=== PATIENT | female | born 1970 | race Caucasian/White ===

== ENCOUNTER → 2018-06-25 17:40 | Outpatient (CLI) | payer BC, SELFPAY ==
[2018-06-25 15:12] VITALS: BMI 24.0
[2018-06-29 10:15] LABS: HPV APTIMA, High Risk Negative (Negative)
== END ==
PROVIDERS: Family Provider Family Medicine; PCP Family Medicine; Referring Provider Nurse Practitioner Women's Health; Visit Provider Nurse Practitioner Women's Health
DX: Z12.4 Encounter for screening for malignant neoplasm of cervix (principal)
CPT/HCPCS: 87624; 88175; G0145

== ENCOUNTER → 2018-07-02 08:50 | Outpatient (CLI) | payer BC, SELFPAY ==
[2018-06-25 15:12] VITALS: BMI 24.0
--- NOTE | 2018-07-02 08:53 | US_ITS ---
STUDY: ULTRASOUND BREAST - RIGHT REASON FOR EXAM: Female, 47 years old. Palpable lump in the right breast. TECHNIQUE: Axial and longitudinal images of the RIGHT breast were performed with a high resolution ultrasound transducer. COMPARISON: Comparison is made with prior mammogram done earlier in the day and prior ultrasound of the right breast dated February 04, 2015. FINDINGS: RIGHT Breast: The palpable abnormality corresponds to a 2.1 cm x 2.5 cm x 1.5 cm hypoechoic irregular nodule with increased vascularity. A biopsy is recommended for further evaluation. This is located at the 10:00 position of the breast at 6 cm from the nipple. US/Breast Limited Unilateral IMPRESSION: The palpable abnormality corresponds to a 2.1 cm x 2.5 cm 1.5 cm hypoechoic irregular nodule. A biopsy is recommended. ASSESSMENT CATEGORY: BIRADS Category 4: Suspicious - Biopsy Should Be Considered. A letter regarding these results will be sent to the patient by the facility within 30 days. Electronically Signed: Oliverio Bill, at 13:56 EST , Service support ,
--- NOTE | 2018-07-02 08:53 | BI_ITS ---
MAMMOGRAPHY - BILATERAL DIAGNOSTIC REASON FOR EXAM: Female, 47 years old. 3 week history of a palpable lump in the upper outer quadrant of the right breast. PERTINENT HISTORY: Non-contributory. TECHNIQUE: Digital bilateral breast daxa (3D mammographic acquisition) in the CC and MLO projections. 2-D mediolateral oblique (MLO) and craniocaudad (CC) views of both breasts were obtained. CAD: Full Field Digital Mammography with Computer Added Detection was performed. COMPARISON: Comparison is made with prior examination dated May 10, 2017 and October 21, 2015. FINDINGS: Breast Composition: The breasts are extremely dense, which lowers the sensitivity of mammography. Questionable nodular density in the upper-outer quadrant of the right breast. A tissue clip marker is once again seen in the upper outer aspect of the right breast. No other significant abnormalities are identified. BI/DIAG MAMM W/CAD, BILAT IMPRESSION: Questionable asymmetrical nodular density in the upper outer quadrant of the right breast. Correlation with ultrasound is recommended. ASSESSMENT CATEGORY: BIRADS Category 0: Incomplete. Need additional imaging evaluation. A letter regarding these results will be sent to the patient by the facility within 30 days. Approximately 10% of breast cancers are not detected by mammography. A normal mammogram should not delay biopsy of a clinically suspicious abnormality. Electronically Signed: Oliverio Bill, at 9:54 EST , Service support ,
== END ==
PROVIDERS: Family Provider Family Medicine; PCP Family Medicine; Referring Provider Nurse Practitioner Women's Health; Visit Provider Nurse Practitioner Women's Health
DX: N63.10 Unspecified lump in the right breast, unspecified quadrant (principal)
CPT/HCPCS: 76642; 77062; 77063; 77066; G0279

== ENCOUNTER 2018-07-27 10:22 | Day surgery (SDC) | payer BC, SELFPAY ==
[2018-06-25 15:12] VITALS: BMI 24.0
--- NOTE | 2018-07-20 15:32 | HP.PCM_ITS ---
History and Physical Date of Admission: 07/27/18 HISTORY AND PHYSICAL Rosa M Ricketts 1970 REFERRING PHYSICIAN: Adele Santiago (Robert), C* CHIEF COMPLAINT: Consult HPI: The patient is a 47 year old female presents with palpable right breast mass. Noted for the past few weeks. Believes that it is slowly enlarging. Denies nipple discharge. Mammograms - 07/02/18 - questionable nodular density in the upper outer quadrant of right breast. A tissue clip marker is once again seen in the upper outer aspect of the right breast. US right breast - 07/02/18 - 2.1 cm x 2.5 cm x 1.5 cm hypoechoic irregular nodule with increased vascularity. A biopsy is recommended for further evaluation. This is located at the 10:00 position of the breast at 6 cm from the nipple Had previous US guided right breast biopsy 02/25/15 - Pathology revealed - Fibroadenoma. Focal adenosis with microcalcifications. Negative for atypia or malignancy in the submitted specimen No palpable lesions noted at that time, but was noted to have bilaterally dense breast tissue on physical examination. Normal mammograms in 2018. Maternal grandmother had breast cancer, no ovarian cancer known in family. PAST MEDICAL HISTORY ? Anxiety 04/07/2017 ? Stress and adjustment reaction PAST SURGICAL HISTORY ? BREAST BIOPSY INCISIONAL RIGHT ? ORAL SURGERY PROCEDURE wisdom teeth removed, top only. ? REMOVAL OF TONSILS,<12 Y/O Tonsillectomy PAST INJURIES Denies head injuries, denies history of fractures Current Outpatient Medications: escitalopram oxalate (LEXAPRO) 20 mg tablet Take 1 tablet by mouth once daily. Etonogestrel-Ethinyl Estradiol (NUVARING) 0.12-0.015 mg/24 hr vaginal ring Insert vaginally as directed ALLERGIES: Penicillins PERSONAL HISTORY: Social History Socioeconomic History Marital status: Spouse name: Not on file Number of children: 0 Years of education: 15. 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 Cancer Maternal Grandfather LUNG CANCER ? Diabetes Paternal Grandfather ? Hypertension Father ? Coronary Artery Disease Father stents REVIEW OF SYSTEMS: General - denies fevers Cardiovascular - denies chest pain Pulmonary - denies shortness of breath, denies coughing up blood Gastrointestinal - denies abdominal pain, denies hematemesis Neurological - denies seizures Genitourinary - denies burning with urination Hematological - denies spontaneous/prolonged bleeding Skin - denies nonhealing skin wounds Musculoskeletal - denies chronic joint/back pain Endocrine - denies diabetes Psychological ? denies major mood changes, stressors in life - with ALS Obstetrical - meanrache onset at ager 18, G0, BCP use starting at age 19 for about 10-15 years, on nuvaring for 3 years, LMP late Jun. PHYSICAL EXAMINATION: General: The patient is 47 year old female, well nourished, well hydrated in no acute distress. The patient is oriented to time, place, and person. VITALS: Blood pressure 138/82, pulse 84, temperature 37.1 ?C (98.8 ?F), temperature source Temporal Artery, height 172.7 cm (5' 8), weight 71.6 kg (157 lb 12.8 oz), SpO2 100 %. Body mass index is 23.99 kg/m?. Head ? Normocephalic. EOM intact with sclera clear and no icterus noted. Mouth with mucus membranes moist. Neck - supple with no jugular venous distention noted. Trachea is midline. No carotid bruits noted. No thyroid enlargement or thyroid nodules detected. No masses noted. Chest/breast ? no asymmetry of breasts noted, no suspicious skin lesions noted, no nipple discharge and both nipples everted, nodular and very dense breast tissue palpated bilaterally, patient points to area at 10:00 of right breast with palpable mass - 2 cm Lungs ? clear to auscultation. Normal breath sounds. No rales/rhonchi/wheezing noted. No labored breathing noted, such as retractions. No cough heard. Heart ? normal S1 and S2 auscultated. No rubs/clicks/murmurs noted. Regular rate. Abdomen ? soft and benign. Normal bowel sounds. No abdominal bruits noted. No distention or tympany noted. No masses noted. Extremities ? no calf tenderness noted. No pitting edema noted. Skin ? normal skin integrity. Lymph ? no cervical adenopathy detected, no supraclavicular adenopathy detected, no axillary adenopathy detected Neurological ? gait normal, no focal deficits noted. Psych ? calm and appropriate RADIOLOGIC STUDIES: As Noted IMPRESSION: right breast mass, abnormal right breast ultrasound and mammograms PLAN: I have discussed the above with the patient. I suspect that this lesion will likely be consistent with a fibroadenoma, enlarged from previous biopsy in 2014. I have offered further evaluation with biopsy - needle core versus excisional biopsy. I have explained the procedure to the patient. I have counseled the patient as to the risks of the procedure, including but not limited to: infection, bleeding, injury to any blood vessels/nerves, scar tissue, wound infections, complications of anesthesia, etc. ? the patient understands. The patient wishes to proceed. She wishes to proceed with excisional biopsy. Assuming fibroadenoma, will plan for initial incisional biopsy with frozen section and then proceed with excisional biopsy. I have answered all questions to the patient?s satisfaction and the patient has no further questions. Return to Clinic: The patient is instructed to follow-up with me after the procedure for discussion of pathology and wound check. Marce Hogue MD
--- NOTE | 2018-07-27 | IMM_PTH ---
PATIENT: BERNARDO CAN LOC: [facility] [place] U#:[id number] AGE/SX: 47/F ROOM: RE07/27/[address]: Dr. Marce Hogue MD : 1970 BED: DIS: 07/27/2018 SPEC #: [id number] RECD: 07/31/18 11:43 STATUS: NEDA REQ #: [id number] JOSELO: 07/27/18 00:[address]: Marce Hgoue DEPT: IMMUNOHISTOCHEMISTRY RECD BY: Brissa Arroyo ENTERED: 07/31/18 11:47 SP TYPE: IMMUNO OTHR DR: Dr. Delano Chapin III, MD Tissues: A - Right breast, NOS Procedures: CD31 (initial) CALPONIN-1 (add) CK5-6 (add) CK8 (add) E-CAD (add) HER2 DAVE (add) KI-67 (add) P53 (add) AR (add) FACTOR VIII (add) P40 (add) ER (initial) PHYSICIAN & [address] [address] SPECIMEN INFORMATION: Tissue Source: A - Right breast mass, B - Right breast lumpectomy Clinical Info: Right breast mass Specimen Number: [id number] A4, B5, B9 CPT code: 96737 x2, 37755 x9, 16658 x3 METHODOLOGY: Deparaffinized sections of prefer/formalin-fixed tissue or PAP/DQ stained slides are incubated with monoclonal/polyclonal antibodies/oligonucleotide probes. Localization is made via biotin free immunoperoxidase method. Appropriate controls are performed and reacted as expected. Results on target cell population are indicated in the following table: RESULTS: ANTIBODY / CLONE RESULT Block A4 P53 (DO-7) positive, >90% Ki-67 (30-9) positive, low to moderate CK8 (87gwcjT25) positive CK5-6 (D5 & 1684) negative Calponin-1 (XN590I) negative P40 (BC28) negative E-Cad (ECH-6) positive MORPHOMETRIC ANALYSIS ER (clone 6F11) 0% AR (clone 16/1E2) 0% Her-2Neu (clone CB11) 3+ Block B5 Factor VIII (R Ag) positive CD31 (ESA/70A) positive Block B9 P40 (BC28) positive CD31 (ESA/70A) positive The prognostic test for HER2 is performed on formalin-fixed paraffin embedded tissue. A 3+ (positive) staining pattern is defined as intense, homogeneous, complete, circumferential membranous staining in >10% of contiguous tumor cells. A similar weak (2+) staining pattern is interpreted as equivocal. ELIZA follow-up testing is recommended for all equivocal cases. Positivity/negativity for ER/AR is reported if > or < 1% of the tumor cells are immuno- reactive, respectively. The ASCO/CAP criteria is used for scoring. Reference: Journal of Clinical Oncology, 2013; 31:3145-0833 & 2010; 16:0030-8534. Duration of fixation: 54.5 Hrs; Sample Adequate: Yes. These assays have not been validated on decalcified tissues. Results should be interpreted with caution given the likelihood of false negativity on decalcified specimens. These tests were developed and their performance characteristics determined by [facility]. They may not have been cleared or approved by the U.S. Food and Drug Administration. The FDA has determined that such clearance or approval is not necessary. INTERPRETATION: A. Right breast mass, excisional biopsy: Invasive ductal carcinoma, grade 3. Negative for estrogen receptors (unfavorable prognostic indicator). Negative for progesterone receptors (unfavorable prognostic indicator). Positive for overexpression of JTH9szs. B. Right breast, lumpectomy: Invasive ductal carcinoma. Focal vascular invasion present. AM:alcira 08/01/18 Case has been reviewed in consultation with Dr. Zhu who concurs with the above diagnosis. IDC:SJ
--- NOTE | 2018-07-27 | BRBX_PTH ---
PATIENT: BERNARDO CAN [place] [facility] [place][id number] AGE/SX: 47/F ROOM: RE07/27/[address]: Dr. Marce Hogue MD : 1970 BED: DIS: 07/27/2018 SPEC #: [id number] RECD: 07/27/18 12:39 STATUS: NEDA REChandler #: [id number] JOSELO: 07/27/18 00:[address]: Marce Hogue DEPT: SURGICAL PATHOLOGY RECD BY: Brissa Arroyo ENTERED: 07/27/18 13:06 SP TYPE: BREAST BX OTHR DR: Dr. Delano Chapin III, MD Tissues: A - Right breast, NOS B - Right breast, NOS C - Right breast, NOS Procedures: Frozen Section (charge) Frozen Section Add'l ([facility]) Surgery Specimen Level IV Surgery Specimen Level V HEADER OPERATION: Excisional breast biopsy, frozen section PRE-OP DIAGNOSIS: Right breast mass, abnormal mammogram TISSUE SUBMITTED: A - Right breast mass sent for frozen at 1234, B - Right breast lumpectomy, two short sutures james medial border, one short suture richardson superior border, one long suture richardson lateral border, two white sutures james anterior closure of biopsy cavity, sent for frozen at 1321, C - Right breast mass FROZEN SECTION DIAGNOSIS A. Right breast mass, excisional biopsy: Invasive poorly differentiated carcinoma. AM:alcira 07/27/18 Case has been reviewed in consultation with Dr. Zhu who concurs with the above diagnosis. IDC:SJ B. Right breast lumpectomy(Gross OR Consult): Recent biopsy cavity measuring 3.8 x 2 cm. No gross tumor identified. AM:alcira 07/27/18 MICROSCOPIC DIAGNOSIS A. Right breast mass, excisional biopsy: Invasive poorly differentiated ductal carcinoma. B. Right breast lumpectomy: Invasive poorly differentiated ductal carcinoma. Biopsy cavity. See cancer checklist below. C. Right breast mass, biopsy: Invasive poorly differentiated ductal carcinoma. AM:alcira 08/01/18 COMMENT INVASIVE BREAST CANCER SUMMARY: (Including parts A-C): Specimen: Partial breast Procedure: Excision without wire guidance Lymph node sampling: No lymph nodes present. Specimen integrity: Multiple designated specimens. Specimen size: A - 3 x 2.5 x 2 cm B - 4.5 x 3.5 x 3.5 cm C - 1.2 to 2.5 cm in greatest dimension. Specimen laterality: Right breast Tumor size: 2.2 x 1.6 x 1.6 mm (from glass slides) Tumor focality: Single focus of invasive carcinoma (received in multiple fragments). Macroscopic and Microscopic extent of tumor: Skin: Skin is not present. Nipple: Nipple is not present. Skeletal muscle: No skeletal muscle present. Carcinoma in situ (DCIS/LCIS): No DCIS/LCIS is present. Histologic type of invasive carcinoma: Invasive ductal carcinoma Histologic Grade ([place] grade): Glandular/tubular differentiation score: 3 Nuclear pleomorphism score: 3 Mitotic count score: 2 Overall grade: Grade 3 (total score of 8) Margins: Uninvolved by invasive carcinoma. Distance from closest (posterior) margin: 0.5 millimeters Lymph-Vascular invasion: Focally present Lymph nodes: Not present Microcalcifications: Present and associated with both carcinoma and non-neoplastic tissue. Treatment effect: No known presurgical therapy Additional pathologic findings: Usual intraductal hyperplasia with focal atypical intraductal hyperplasia. Adenosis and Fibrocystic changes and focal microfibroadenomatous change. Ancillary studies: Block A4 ([id number]). ER: 0% TX: 0% Her2 michel:3+ ([facility]) PATHOLOGIC STAGE: pT2 Nx Mx The above summary is in compliance with [employer] [place] Pathology (CAP) Cancer Protocols Checklist and [place] Joint Committee on Cancer (AJCC), Staging Manual, 8th Ed. Case has been reviewed in consultation with Dr. Zhu who concurs with the above diagnosis. IDC:SJ MICROSCOPIC DESCRIPTION Slides are reviewed. GROSS DESCRIPTION A - Received fresh for frozen section consultation labeled with the patient's name is a specimen designated right breast mass. The specimen consists of a lobulated fragment of pink-yellow soft tissue measuring 3 x 2.5 x 2 cm. The specimen is inked and serially sectioned to reveal dense white, somewhat lobulated cut surfaces. No cysts are identified. Tow Motor Mechanic sections are submitted in two cassettes for frozen section consultation. The remainder of the specimen is submitted in cassettes 3-7. / AM: 07/27/18 B - Received fresh for OR consultation labeled with the patient's name is a specimen designated right breast lumpectomy. The specimen consists of an irregular fragment of oriented and yellow fatty tissue measuring 4.5 x 3.5 x 3.5 cm and weighing 26.2 gm. The specimen is differentially inked as follows: anterior - yellow, posterior - black, superior - blue, inferior - green, medial - red and lateral - orange. Serial sections reveal a recent biopsy cavity measuring 3.8 cm in greatest dimension. Sections do not reveal gross lesions suspicious for malignancy. The gross is discussed with the surgeon intraoperatively. The specimen is sectioned and totally submitted in 18 cassettes. / AM: 07/30/18 C - Received in fixative is one container labeled with the patient's name and designated right breast mass. The specimen consists of three irregular fragments of yellow-davis soft tissue ranging in size from 1.2 to 2.5 cm. The fragments are inked, serially sectioned and totally submitted in two cassettes. / AM: 07/30/18 TC:0 CPT: 05583 x2, 56043, 37969, 35793, 94425 ADDENDUM ADDENDUM ADDENDUM ADDENDUM ADDENDUM ADDENDUM ADDENDUM ADDENDUM ADDENDUM ADDENDUM ADDENDUM ADDENDUM ADDENDUM ADDENDUM ADDENDUM ADDENDUM ADDENDUM ADDENDUM ADDENDUM ADDENDUM ADDENDUM ADDENDUM ADDENDUM ADDENDUM 09/19/2018 11:00 ADDENDUM 09/19/2018 11:00 ADDENDUM 09/19/2018 11:00 ADDENDUM 09/19/2018 11:00 ADDENDUM 09/19/2018 11:00 This addendum is added to incorporate an outside pathology consultation report. The case was examined at [facility] (#[id number]) and the following diagnosis was rendered. A. Right breast mass, excisional biopsy: Invasive ductal carcinoma, [place] grade 3, measuring 2.2 cm in greatest dimension. Foci of lymphovascular space invasion are identified. Invasive carcinoma is present at unspecified inked margins. B. Right breast, lumpectomy: Invasive ductal carcinoma, Jabari grade 3, measuring at least 5 mm in greatest dimension. Ductal carcinoma in situ, nuclear grade 3, solid type. Atypical ductal hyperplasia. Proliferative epithelial changes including florid usual ductal hyperplasia and adenosis with associated microcalcifications. C. Right breast mass, biopsy: Invasive ductal carcinoma, Jabari grade 3, measuring at least 9 mm in greatest dimension. Invasive carcinoma is present at unspecified inked margin of resection. Atypical ductal hyperplasia. Please see complete above mentioned consultation report in EMR
[2018-07-27 10:53] VITALS: BP 103/63; PULSE 62; RESP 16; TEMP 36.8; O2SAT 100; BMI 24.5
--- NOTE | 2018-07-27 12:13 | DCINST_ITS ---
Discharge Diet: No Restrictions Discharge Activity: Return to Normal Activity, May not drive while taking narcotic pain medications. Return to work on:: 08/02/18 Lifting Restrictions: no lifting with right arm greater than 10 pounds Call your doctor if your incision/area has: Continuous Slow Oozing, Foul Smelling Discharge Call your doctor if you observe: Fever of 101 or Higher Additional Dressing/Incision Instructions:: Leave dressings in place. May get wet in shower. Do not soak - no tub baths/swimming. Please wear supportive bra during the day Allergies/Adverse Reactions: Allergies Penicillins Allergy (Mild, Verified 07/27/18 10:52) unknown Medications to take at Discharge escitalopram 20 mg tablet 20 mg PO DAILY 06/25/18 Hydrocodone Bitart/Apap 5-325 [[place] 5MG-325MG] 1 tab PO Q8H PRN PRN 5 Days #15 tab 07/27/18 The following prescriptions were given: Hydrocodone Bitart/Apap 5-325 [[place] 5MG-325MG] 1 tab PO Q8H PRN PRN 5 Days #15 tab PRN Reason: Pain Orders to be completed after discharge: ,Urine Time Frame: 07/27/18, Location: Laboratory Primary Care Physician: Delano Chapin III, MD [Primary Care Provider] - Please Follow Up With: Marce Hogue MD - When: to be seen on August 06, please call for time, thank you
[2018-07-27] MEDS: Bupiv/Epi 0.25% 30 ML Vial (12:37)
--- NOTE | 2018-07-27 13:42 | PCM.OPRPT ---
Report of Operation Date of Procedure: 07/27/18 Pre-Operative Diagnosis: right breast mass -fibroadenoma Post-Operative Diagnosis: right breast cancer Surgery/Procedure Performed:: right breast lumpectomy Description of Surgical Findings:: Patient with palpable right breast mass, previous biopsy in 2014 revealed fibroadenoma. Patient presented for excisional biopsy, pathology revealed cancer, biopsy cavity excised around the area for margins - this tissue was marked with suture Anesthesiologist: Lennox Hyde Specimen's removed: right breast mass, margin of breast tissue excised around the initial biopsy site and marked with suture for margins Estimated Blood Loss (mL): < 10 Fluids Replaced: see anesthesia note Description of Procedure: After informed consent was given the patient was brought to the Operating Room. Appropriate time out protocol was followed. She was then placed on the operating table in the supine position. The right breast was then prepped with a sterile surgical skin preparation and sterile surgical drapes were placed. The skin and subcutaneous tissues at the site of the breast lesion was then infiltrated with 1% xylocaine with epinephrine. A transverse curvilinear skin incision was then made with a 15 blade scalpel in the lateral aspect of the upper outer right breast and carried down through to the subcutaneous tissues. Hemostasis was controlled with electrocautery. The mass was then palpated out. The mass was seemingly a fibroadenoma surrounded by fibrous stroma. It was from the surrounding tissue by sharp dissection and forwarded to pathology for analysis. Frozen section revealed breast cancer. A margin of breast tissue surrounding the initial biopsy was then obtained by separation from the breast tissue using electrocautery. This margin of breast tissue was then marked with suture for margins. It was forwarded to pathology for analysis. The pathologist recommended placement in formalin for permanent section. The wound cavity was carefully examined. No further suspicious tissue was palpated or visualized. Hemostasis of the right breast lumpectomy site was achieved by electrocautery. The subdermal tissues were reapproximated with 2-0 vicryl suture. The subcutaneous tissues were reapproximated with running 3-0 vicryl suture. The incision was then reapproximated close using running monocryl suture. Cavilon and steristrips were then placed to reinforce the skin closure. A sterile dressing was then applied. The patient was then brought to the Recovery Room in stable condition. - Complications none noted - Admit VTE Documentation VTE Present on Admission: Yes VTE Mechan Device Prophylaxis: SCD's
[2018-07-27 13:48] VITALS: BP 103/63; BP 136/71; PULSE 88; RESP 18; TEMP 36.7; O2SAT 99
[2018-07-27 14:00] VITALS: BP 103/63; BP 124/81; PULSE 86; RESP 18; O2SAT 99
[2018-07-27 14:14] VITALS: BP 103/63; BP 123/75; PULSE 79; RESP 16; TEMP 36.9; O2SAT 98
[2018-07-27 15:41] VITALS: BP 103/63; BP 122/76; PULSE 81; RESP 16; TEMP 36.8; O2SAT 99
== END 2018-07-27 15:46 | disposition home or self-care (01) ==
LOC: SDC 10:22 → AC 10:23
PROVIDERS: Family Provider Family Medicine; PCP Family Medicine; Referring Provider Surgery; Visit Provider Surgery
PROC: (CPT 19301; principal; 2018-07-27 11:45)
DX: C50.411 Malignant neoplasm of upper-outer quadrant of right female breast (principal); F41.9 Anxiety disorder, unspecified; Z80.3 Family history of malignant neoplasm of breast; Z79.899 Other long term (current) drug therapy
CPT/HCPCS: 00400; 19301; 88305; 88307; 88331; 88332; 88341; 88342; J7120; J2405

== ENCOUNTER → 2018-08-23 | Outpatient (CLI) | payer BC, SELFPAY ==
[2018-07-27 10:53] VITALS: BMI 24.5
== END | disposition home or self-care (01) ==
PROVIDERS: Family Provider Family Medicine; PCP Family Medicine; Referring Provider Internal Medicine Hematology & Oncology; Visit Provider Internal Medicine Hematology & Oncology
DX: C50.411 Malignant neoplasm of upper-outer quadrant of right female breast (principal); Z17.1 Estrogen receptor negative status [ER-]
CPT/HCPCS: 93306

== ENCOUNTER 2021-05-25 14:00 | Outpatient (CLI) | payer BC, SELFPAY ==
[2021-06-01 20:55] LABS: HPV APTIMA, High Risk Positive (Negative)
== END 2021-05-25 23:59 | disposition short-term general hospital (02) ==
LOC: LABSPEC 05-27 11:14
PROVIDERS: Visit Provider Nurse Practitioner Women's Health
DX: Z12.4 Encounter for screening for malignant neoplasm of cervix (principal)
CPT/HCPCS: 87624; 88175; G0145

== ENCOUNTER → 2023-09-07 | Outpatient (CLI) | payer BC, SELFPAY | END | disposition home or self-care (01) | PROVIDERS: Referring Provider Nurse Practitioner Women's Health; Visit Provider Nurse Practitioner Women's Health | DX: Z12.4 Encounter for screening for malignant neoplasm of cervix (principal) | CPT/HCPCS: 87624; 88175; G0145 ==

== ENCOUNTER → 2023-11-13 | Outpatient (CLI) | payer BC, SELFPAY ==
--- NOTE | 2023-11-13 | IMM_PTH ---
PATIENT: BERNARDO CAN LOC: [facility] U#:[id number] AGE/SX: 53/F ROOM: RE11/13/[address]: Dr. Morenita Altamirano DO : 1970 BED: DIS: 11/13/2023 SPEC #: [id number] RECD: 11/15/23 10:15 STATUS: NEDA REChandler #: [id number] JOSELO: 11/13/23 00:[address]: Morenita Altamirano DEPT: IMMUNOHISTOCHEMISTRY RECD BY: Yuri Hamilton ENTERED: 11/15/23 10:15 SP TYPE: IMMUNO OTHR DR: No Primary Care Phys Tissues: B - Uterine cervix, NOS Procedures: p16 (initial) KI-67 (add) PHYSICIAN & INSTITUTION [place] [phone] SPECIMEN INFORMATION: Tissue Source: B- 8o'clock Clinical Info: ASCUS HPV+ Specimen Number: [id number] CPT code: 13362,59026 METHODOLOGY: Deparaffinized sections of prefer/formalin-fixed tissue or PAP/DQ stained slides are incubated with monoclonal/polyclonal antibodies/oligonucleotide probes. Localization is made via biotin free immunoperoxidase method. Appropriate controls are performed and reacted as expected. Results on target cell population are indicated in the following table: RESULTS: ANTIBODY / CLONE RESULT Block B P16 (E6H4) positive, focal patchy staining Ki-67 (30-9) positive, low These tests were developed and their performance characteristics determined by [facility]. They may not have been cleared or approved by the [place]. Food and Drug Administration. The FDA has determined that such clearance or approval is not necessary. The above immunohistochemical/dualISH markers are ordered and reviewed by the Pathologist. INTERPRETATION: B. Cervix, 8o'clock, biopsy: Focal changes consistent with HPV cytopathic effects. JUAN ALBERTO/ 11/16/2023
--- NOTE | 2023-11-13 14:00 | ECC_PTH ---
PAT[id number] AGE/SX: 53/F ROOM: RE11/13/[address]: Dr. Morenita Altamirano DO : 1970 BED: DIS: 11/13/2023 SPEC #: [id number] RECD: 11/13/23 16:09 STATUS: NEDA KELLOGGChandler #: [id number] JOSELO: 11/13/23 14:[address]: Morenita Altamirano DEPT: SURGICAL PATHOLOGY RECD BY: Jacinta Maldonado ENTERED: 11/14/23 06:39 SP TYPE: ECC EPIFANIO DR: No Primary Care Phys Tissues: A - Endocervical B - Uterine cervix, NOS Procedures: Surgery Specimen Level IV HEADER OPERATION: Colposcopy PRE-OP DIAGNOSIS: ASCUS HPV+ TISSUE SUBMITTED: A- Elda SINGH- 8o'clock MICROSCOPIC DIAGNOSIS A. Endocervical curettings: Fragments of benign ectocervical and endocervical epithelial cells, negative for dysplasia. B. Cervix, 8o'clock, biopsy: Focal changes consistent with HPV cytopathic effects. Chronic inflammation. See comment. / 11/15/2023 COMMENT B. Immunohistochemistry ([id number]) for surrogate HPV marker (p16) supports the above diagnosis. MICROSCOPIC DESCRIPTION Slides are reviewed. GROSS DESCRIPTION A. Received in fixative is a metallic brush with adherent minute fragments of davis-red tissue and labeled with the patient's name and and designated per the requisition as ECC BRUSH. The material is dislodged from the brush and submitted for cell block preparation in one cassette. B. Received in fixative is one container labeled with the patient's name and designated 8o'clock. The specimen consists of one irregular fragment of light davis soft tissue that measures 0.3 x 0.1 x 0.1 cm. The specimen is totally submitted in one cassette. [facility] 11/14/2023 TC:5 CPT:72924g2
== END | disposition home or self-care (01) ==
LOC: LABSPEC 16:18
PROVIDERS: Referring Provider Obstetrics & Gynecology; Visit Provider Obstetrics & Gynecology
DX: N72 Inflammatory disease of cervix uteri (principal)
CPT/HCPCS: 88305; 88341; 88342